=== PATIENT | female | born 1985 | race Hispanic/Latino ===

== ENCOUNTER 2018-08-06 06:58 | Day surgery (SDC) | payer OTHER ==
[2018-08-06] MEDS ORDERED: SUBLIMAZE IV NR (07:25)
[2018-08-06] MEDS ORDERED: VERSED IV NR (07:25)
[2018-08-06 07:48] LABS: Basophils # (Auto) 0.1 K/mm3 (0.0-0.1); Basophils % (Auto) 1.5 % (0.0-1.8); Eosinophils # (Auto) 0.6 K/mm3 (0.0-0.4); Eosinophils % (Auto) 11.6 % (0.0-4.3); Hematocrit 31.6 % (30.3-42.9); Hemoglobin 11.1 gm/dl (10.1-14.3); Lymphocytes # (Auto) 1.2 K/mm3 (1.2-5.4); Lymphocytes % (Auto) 24.8 % (13.4-35.0); Mean Corpuscular HGB Conc 35 % (30-34); Mean Corpuscular Volume 84 fl (79-97); Monocytes # (Auto) 0.4 K/mm3 (0.0-0.8); Monocytes % (Auto) 7.2 % (0.0-7.3); Platelet Count 162 K/mm3 (140-440); Red Blood Count 3.78 M/mm3 (3.65-5.03); Red Cell Distribution Width 12.8 % (13.2-15.2)
[2018-08-06 07:58] LABS: INR 1.13 (0.87-1.13); Partial Thromboplastin Time 20.3 Sec. (24.2-36.6)
[2018-08-06] MEDS ORDERED: NACL 0.9% 500 ML 500 ML IV SCH (08:00)
[2018-08-06] MEDS ORDERED: GELFOAM 12 X 7 TP ONE (09:08)
--- NOTE | 2018-08-06 09:34 | Short Stay Summary ---
Short Stay Documentation Date of service: 08/06/18 - History Principal diagnosis: hypertension, CRF Past Medical History: hypertension, other (new onset renal failure) Past Surgical History: Social history: , lives with family - Allergies and Medications Current Medications: Allergies No Known Allergies Allergy (Unverified 08/06/18 06:59) Home Medications Medication Instructions Recorded Confirmed Last Taken Type Metoprolol Succinate 50 mg PO DAILY 08/06/18 08/06/18 08/05/18 10:00 History 50mg NIFEdipine [Nifedipine ER] 30 mg PO BID 08/06/18 08/06/18 08/05/18 21:00 History 30mg hydrALAZINE [Apresoline TAB] 25 mg PO BID 08/06/18 08/06/18 08/06/18 07:00 History 25mg Active Medications Fentanyl (Sublimaze) 100 mcg IV ONCE NR Stop: 08/06/18 16:00 Sodium Chloride (Nacl 0.9% 500 Ml) 500 mls @ 50 mls/hr IV DIRECT ZULEYMA Last Admin: 08/06/18 08:35 Dose: 50 mls/hr Documented by: Midazolam HCl (Versed) 5 mg IV ONCE NR Stop: 08/06/18 16:00 - Physical exam General appearance: no acute distress Integumentary: no rash HEENT: PERRLA Lungs: Normal air movement Breasts: deferred Heart: Regular rate Gastrointestinal: normal Female Genitourinary: deferred Rectal Exam: deferred Extremities: no ischemia, No edema Neurological: Normal gait, Normal speech - Brief post op/procedure progress note Date of procedure: 08/06/18 Pre-op diagnosis: Renal failure Post-op diagnosis: same Procedure: CT guided renal biopsy Anesthesia: local Surgeon: ASHLYN RAZA Estimated blood loss: minimal Pathology: none Condition: stable - Disposition Condition at discharge: Good Disposition: DC-01 TO HOME OR SELFCARE Short Stay Discharge Plan Activity: advance as tolerated Weight Bearing Status: Weight Bear as Tolerated Diet: regular Wound: keep clean and dry, per your surgeon's advice Follow up with: CHRISTIANO TRENT MD [Primary Care Provider] - 7 Days
[2018-08-06] MEDS ORDERED: ROXICODONE PO ONE (10:00)
--- NOTE | 2018-08-06 10:40 | Cat Scan Report ---
Exam: CT-guided biopsy of kidney Clinical indication: Medical renal disease, unknown etiology Date: 08/06/2018 Procedure: Following an explanation of risks, benefits and alternatives; written informed consent was obtained. The patient was brought to the CT suite and placed in prone position on the gantry. Stratigrapher images of back are obtained in the right kidney was chosen for biopsy secondary to a small interpretable system left kidney. Patient's right lower back was prepped and draped in usual sterile fashion. 1% lidocaine was used for anesthesia. Using intermittent CT guidance, a 10 cm 18-gauge trocar needle was advanced to the margin of the lower pole of the right kidney. Confirmation was obtained using CT imaging. A single core biopsy was obtained. The biopsy was adequate. The biopsy needle was removed and the tract filled with Gelfoam pledgets. Post biopsy imaging demonstrated a small subcapsular hematoma. The needle was removed and hemostasis achieved on the skin surface using manual compression. A sterile compression dressing was applied. The patient tolerated the procedure well. There were no immediate post procedure complications. Conscious sedation was performed on the guidance of radiologic nursing. Continuous cardiopulmonary monitoring was utilized. Impression: CT-guided biopsy of right lower pole. Sample sent to pathology.
[2018-08-06] MEDS ORDERED: NACL 0.9% 500 ML 500 ML IV ONE (12:51)
[2018-08-06 14:13] VITALS: BP 114/89
== END 2018-08-06 13:55 | disposition home or self-care (01) ==
LOC: CATHLABREC 06:58 → EDSTATUS 08:30 → CATHLABREC 13:55
PROVIDERS: ATTEND Internal Medicine Nephrology
DX: I12.0 Hypertensive chronic kidney disease with stage 5 chronic kidney disease or end stage renal disease (principal); N18.4 Chronic kidney disease, stage 4 (severe); Z79.899 Other long term (current) drug therapy; Z82.61 Family history of arthritis; Z82.5 Family history of asthma and other chronic lower respiratory diseases; Z98.890 Other specified postprocedural states
CPT/HCPCS: 36415; 50200; 77012; 85025; 85610; 85730; A4649; J2250; J3010; J7040